=== PATIENT | female | born 1960 | race Caucasian/White ===

== ENCOUNTER → 2019-01-31 10:23 | Outpatient (CLI) | payer BC, SELFPAY ==
[2019-01-31 13:01] LABS: AST(SGOT) 17 U/L (15-37); Alanine Aminotransfer ALT/SGPT 29 U/L (13-56); Albumin, Serum 3.9 g/dL (3.2-5.0); Alkaline Phosphatase 49 U/L (45-117); Anion Gap 6 (5-15); BUN 15 mg/dL (7-18); BUN/Creat Ratio 19.2 RATIO (10-20); Calcium,Total 9.5 mg/dL (8.5-10.1); Chloride 104 mmol/L (98-107); Cholesterol 243 mg/dL (200); Creatinine, Serum 0.78 mg/dL (0.55-1.02); EST Glomerular Filtration Rate 80 mL/min (>60); Est Glom Filt Rate - Afr Amer 97 mL/min (>60); Globulin 4.1 g/dL (2.2-4.2); Glucose 109 mg/dL (74-106); High Density Lipoprotein 69 mg/dL; Potassium 3.7 mmol/L (3.5-5.1); Sodium Level 138 mmol/L (136-145); T4 Free Direct 1.07 ng/dL (0.76-1.46); Thyroid Stim Hormone (TSH) 2.64 uIU/mL (0.358-3.74); Triglycerides 114 mg/dL; Very Low Density Lipoprotein 23 mg/dL (5-40)
== END ==
PROVIDERS: Family Provider Family Medicine; PCP Family Medicine; Referring Provider Family Medicine; Visit Provider Family Medicine
DX: I10 Essential (primary) hypertension (principal); E03.9 Hypothyroidism, unspecified
CPT/HCPCS: 36415; 80053; 80061; 84439; 84443

== ENCOUNTER → 2019-08-11 08:54 | Outpatient (CLI) | payer BC, SELFPAY ==
--- NOTE | 2019-08-11 09:39 | BI_ITS ---
MAMMOGRAPHY - BILATERAL SCREENING REASON FOR EXAM: Female, 59 years old. Routine annual screening examination. PERTINENT HISTORY: Mother with breast cancer. Aunt with breast cancer. TECHNIQUE: Digital bilateral breast milly (3D mammographic acquisition) in the CC and MLO projections. 2-D mediolateral oblique (MLO) and craniocaudad (CC) views of both breasts were obtained. CAD: Full Field Digital Mammography with Computer Added Detection was performed. COMPARISON: Comparison is made with prior examination dated January 13, 2015 and January 21, 2014. FINDINGS: Breast Composition: There are scattered areas of fibroglandular density. There are no dominant masses or suspicious calcifications. Stable benign-appearing bilateral axillary lymph nodes. No other significant abnormalities are identified. There has been no significant change since the prior study. BI/SCREEN MAMM (CAD) W/MILLY BILAT IMPRESSION: Stable bilateral screening mammogram. Yearly follow-up mammogram recommended. (A) ASSESSMENT CATEGORY: BIRADS Category 2: Benign. A letter regarding these results will be sent to the patient by the facility within 30 days. Approximately 10% of breast cancers are not detected by mammography. A normal mammogram should not delay biopsy of a clinically suspicious abnormality. [id number] Electronically Signed: Jay Paige, at 8:26 EST , Service support ,
[2019-08-11 09:49] LABS: Anion Gap 3 (5-15); BUN 16 mg/dL (7-18); BUN/Creat Ratio 19.5 RATIO (10-20); Calcium,Total 9.5 mg/dL (8.5-10.1); Chloride 101 mmol/L (98-107); Cholesterol 259 mg/dL (200); Creatinine, Serum 0.82 mg/dL (0.55-1.02); EST Glomerular Filtration Rate 76 mL/min (>60); Est Glom Filt Rate - Afr Amer 92 mL/min (>60); Glucose 110 mg/dL (74-106); High Density Lipoprotein 70 mg/dL; Sodium Level 136 mmol/L (136-145); Thyroid Stim Hormone (TSH) 1.35 uIU/mL (0.358-3.74); Triglycerides 105 mg/dL; Very Low Density Lipoprotein 21 mg/dL (5-40)
== END ==
PROVIDERS: PCP Family Medicine; Referring Provider Obstetrics & Gynecology Gynecology; Visit Provider Obstetrics & Gynecology Gynecology
DX: Z12.31 Encounter for screening mammogram for malignant neoplasm of breast (principal); I10 Essential (primary) hypertension; E78.5 Hyperlipidemia, unspecified
CPT/HCPCS: 36415; 77063; 77067; 80048; 80061; 84443

== ENCOUNTER → 2019-08-14 07:45 | Outpatient (CLI) | payer BC, SELFPAY ==
--- NOTE | 2019-08-14 07:52 | US_ITS ---
STUDY: SUPERFICIAL ULTRASOUND - RIGHT SHOULDER. REASON FOR EXAM: Female, 59 years old. RT SHOULDER PALPABLE MASS TECHNIQUE: A superficial ultrasound was performed with real-time and static fernandez-scale imaging. COMPARISON: None. FINDINGS: In the region of clinical concern there is a 3.1 cm area of muscular prominence. A focal round structure of increased echogenicity demonstrated measuring 0.5 x 0.7 cm which may represent a small area of intramuscular hematoma. US/Ext Non Vasc Limited/Soft Tiss IMPRESSION: Muscular prominence in the region of clinical concern with possible small intramuscular hematoma if patient has history of trauma. If indicated, this can be further evaluated with MRI in nonacute setting. Electronically Signed: Penny Medina MD at 0:31 EST , Service support ,
== END ==
PROVIDERS: PCP Family Medicine; Referring Provider Family Medicine; Visit Provider Family Medicine
DX: R22.31 Localized swelling, mass and lump, right upper limb (principal)
CPT/HCPCS: 76882

== ENCOUNTER → 2019-08-21 15:15 | Outpatient (CLI) | payer BC, SELFPAY ==
--- NOTE | 2019-08-21 16:00 | MRI_ITS ---
STUDY: MRI RIGHT SHOULDER REASON FOR EXAM: Female, 59 years old. RIGHT shoulder mass anterior/lateral proximal humerus x 2 years, NKI, no problems with ROM TECHNIQUE: Standardized fat and water weighted pulse sequences were obtained in all 3 orthogonal planes. COMPARISON: Ultrasound dated 08/14/2019. FINDINGS: Homogeneous nonenhancing well encapsulated lesion following fat signal on all sequences within the anterior deltoid muscle (axial image 11 series 8 and sagittal image 7 series 11). Lesion measures approximately 8.4 cm x 2.7 cm x 2.5 cm. Lesion demonstrates small thin nonenhancing septation inferiorly (axial image 18 series 7). Mild supraspinatus tendinosis. Mild infraspinatus tendinous. Normal subscapularis tendon. Normal teres minor tendon. Normal supraspinatus muscle. Normal infraspinatus muscle. Normal subscapularis muscle. Normal teres minor muscle. Normal glenohumeral articulation. Normal humeral head and visualized proximal humerus. Normal biceps labral complex. Normal intracapsular long biceps tendon. Normal labrum. Normal capsulo- ligamentous complex. Normal rotator interval. Mild acromial clavicular joint arthrosis. Mild subacromial subdeltoid bursitis. Preserved acromiohumeral interval. Intact coracohumeral and coracoacromial ligaments. Normal quadrilateral space. Normal axillary space. Normal trapezius muscle. MRI/Upper Ext Joint Only W/WO Cont IMPRESSION: Nonenhancing intramuscular anterior deltoid lipoma Mild rotator cuff tendinosis without tear Mild AC joint arthrosis with mild subacromial subdeltoid bursitis Electronically Signed: Nakul Acuña DO at 8:32 EST Tel , Service support ,
== END ==
PROVIDERS: PCP Family Medicine; Referring Provider Family Medicine; Visit Provider Family Medicine
DX: R22.30 Localized swelling, mass and lump, unspecified upper limb (principal)
CPT/HCPCS: 73223; A9575

== ENCOUNTER 2020-02-06 09:44 | Emergency (ER) | payer BC, SELFPAY ==
[2020-02-06 09:45] VITALS: BP 152/102; PULSE 93; RESP 18; TEMP 36.6; O2SAT 98; BMI 28.1
--- NOTE | 2020-02-06 10:01 | ED.VISSUMM ---
- ER Visit Summary Date of Service: 02/06/20 Chief Complaint: Sided nosebleed History of Present Illness: The patient is a 59 F medical history of hypertension and hypothyroidism. Patient had a COVID nasal swab test done about a month ago. Typically she does not have nosebleeds. Since that time is had multiple different nosebleeds only from the right. She is on no blood thinners currently she previously was on aspirin only which they have stopped due to the nosebleeds. This morning she started having a nosebleed again. Only on the right side and her primary care physician's office instructed her to come to the emergency department. She denies any hematuria, hemoptysis, melena or bruising. She is never had any problems with bleeding disorders, anemia or platelet disorder. Blood thinners. Physical Examination: Well-appearing middle-aged female vital signs are stable afebrile initial blood pressure 152/102. present at bedside. H EENT exam currently there is no bleeding. There is no obvious source. The anterior nasal septum at [facility] plexus is unremarkable. There is no ulceration or trauma. There is no blood, clot or active bleeding. The left nares is normal. The right nasal turbinate is mildly swollen. Posterior pharynx no active bleeding. No large clots. Neck nontender. No lymphadenopathy. Lungs are clear. Heart regular rhythm no murmur. Abdomen soft. Moving all 4 extremities. No signs of any excessive bruising. Test Results: None Emergency Department Course and Treatment: Afrin soaked cotton balls be placed in both sides of her nose. Anterior nasal pack will be placed in the right. Treatment Plan: Amoxicillin 3 times daily for 3 days. Packing pulled in 3 days. Follow-up with ENT Dr. Sarbjit Rodgers as needed. Return if worse. Disposition: Discharge Impression: Acute right-sided nosebleed Anterior nasal pack by ER This note was generated with [employer] dictation software. It may contain incorrect words, spelling, and punctuation that were not noted in review of the chart prior to signing ED Disposition - Plan for ED Patient: Referrals: Sridhar Portillo MD [Primary Care Provider] -
--- NOTE | 2020-02-06 10:05 | DCINST.ED_ITS ---
ED Disposition - Plan for ED Patient: Disposition: Home or Assisted Living Instructions: Nosebleed Prescriptions: Amoxicillin 250 mg PO TID #9 cap Prescription Printed Referrals: Sridhar Portillo MD [Primary Care Provider] - As Needed Sridhar Alcazar MD [STAFF PHYSICIAN] - 1 Week if not improving Additional Instructions: Amoxicillin 3 times a day till packing removed. Follow-up with ENT if you continue to have nosebleeds. If recurrent bleeding at home with direct pressure and either Afrin or Esa- Synephrine nasal spray to help stop the bleeding. If unable return to the emergency department. Packing pulled out in 3 days.
[2020-02-06] MEDS: Oxymetazoline 0.05% 1 SPRAY SPRAY.BTL NASAL (11:09)
== END 2020-02-06 10:55 | disposition home or self-care (01) ==
LOC: ED 10:11
PROVIDERS: Emergency Provider Emergency Medicine; PCP Family Medicine
DX: R04.0 Epistaxis (principal); I10 Essential (primary) hypertension; E03.9 Hypothyroidism, unspecified
CPT/HCPCS: 30901; 99282; A4216

== ENCOUNTER → 2020-02-15 07:26 | Outpatient (CLI) | payer BC, SELFPAY ==
[2020-02-06 09:45] VITALS: BMI 28.1
[2020-02-15 08:20] LABS: Anion Gap 4 (5-15); BUN 18 mg/dL (7-18); BUN/Creat Ratio 21.7 RATIO (10-20); Calcium,Total 9.2 mg/dL (8.5-10.1); Chloride 100 mmol/L (98-107); Cholesterol 266 mg/dL (200); Creatinine, Serum 0.83 mg/dL (0.55-1.02); EST Glomerular Filtration Rate 75 mL/min (>60); Est Glom Filt Rate - Afr Amer 91 mL/min (>60); Glucose 113 mg/dL (74-106); High Density Lipoprotein 68 mg/dL; Potassium 3.8 mmol/L (3.5-5.1); Sodium Level 136 mmol/L (136-145); Thyroid Stim Hormone (TSH) 3.21 uIU/mL (0.358-3.74); Triglycerides 109 mg/dL; Very Low Density Lipoprotein 22 mg/dL (5-40)
== END ==
PROVIDERS: PCP Family Medicine; Referring Provider Family Medicine; Visit Provider Family Medicine
DX: E03.9 Hypothyroidism, unspecified (principal); I10 Essential (primary) hypertension
CPT/HCPCS: 36415; 80048; 80061; 84443

== ENCOUNTER → 2020-05-23 08:08 | Outpatient (CLI) | payer BC, SELFPAY ==
[2020-05-23 10:34] LABS: ALB/GLOB Ratio 1.1 RATIO (0.9-2.4); AST(SGOT) 24 U/L (15-37); Alanine Aminotransfer ALT/SGPT 36 U/L (13-56); Albumin, Serum 4.1 g/dL (3.2-5.0); Alkaline Phosphatase 48 U/L (45-117); Anion Gap 4 (5-15); BUN 14 mg/dL (7-18); BUN/Creat Ratio 18.2 RATIO (10-20); Calcium,Total 9.8 mg/dL (8.5-10.1); Chloride 101 mmol/L (98-107); Cholesterol 182 mg/dL (200); Creatinine, Serum 0.77 mg/dL (0.55-1.02); EST Glomerular Filtration Rate 81 mL/min (>60); Est Glom Filt Rate - Afr Amer 98 mL/min (>60); Globulin 3.9 g/dL (2.2-4.2); Glucose 109 mg/dL (74-106); High Density Lipoprotein 73 mg/dL; Potassium 3.6 mmol/L (3.5-5.1); Sodium Level 136 mmol/L (136-145); Triglycerides 88 mg/dL; Very Low Density Lipoprotein 18 mg/dL (5-40)
== END ==
PROVIDERS: PCP Family Medicine; Referring Provider Family Medicine; Visit Provider Family Medicine
DX: I10 Essential (primary) hypertension (principal); E78.2 Mixed hyperlipidemia
CPT/HCPCS: 36415; 80053; 80061

== ENCOUNTER 2020-06-05 05:43 | Day surgery (SDC) | payer BC, SELFPAY ==
--- NOTE | 2020-06-01 21:15 | PCM.HP.STD ---
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 For many years, patient has complained of pain, aching, and discomfort in her right lower extremity. This has become progressively worse. The patient denies swelling in her right lower extremity. She has no history of thrombophlebitis. A venous duplex examination has been performed, revealing incompetence of the right great saphenous vein, right small saphenous vein, right anterior accessory saphenous vein, and accessory saphenous veins at the S2 and S3 positions. The implications of this diagnosis have been discussed with the patient in detail. The options of management have been discussed with the patient in detail. Conservative treatment measures have been implemented for many months, including leg elevation, avoidance of idle standing and sitting, graduated compression stockings, weight control measures, active lifestyle, and [id number] analgesics. 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 (Chronic) Leg pain, right (Chronic) Hypertension (Chronic) Hypothyroidism (Chronic) Allergies perfume Allergy (Verified 05/27/20 08:11) PT UNABLE TO RESPOND-NEEDS F/U SEASONAL Allergy (Uncoded 02/06/20 09:47) PT UNABLE TO RESPOND-NEEDS F/U Home Medications: Ambulatory Orders Medication Instructions Recorded levothyroxine 88 mcg tablet 100 mcg PO DAILY 08/24/19 lisinopril 10 1 tab PO DAILY 08/24/19 mg-hydrochlorothiazide 12.5 mg tablet sertraline 50 mg tablet 100 mg PO DAILY 08/24/19 Atorvastatin Calcium [Lipitor] 20 mg PO QHS 11/24/20 Cholecalciferol (VIT D3) [Vitamin 1,000 unit PO DAILY 05/27/20 D] Multivitamin 1 ea PO DAILY 05/27/20 Surgical History: hysterectomy, tonsillectomy, - - The patient underwent endovenous laser ablation of the left great saphenous vein and the left small saphenous vein on April 03, 2020. Psychiatric History: No pertinent psych hx [employer] History: - - [id number] Lives: Spouse/ Significant Other Smoking Status: Never smoker Tobacco Use: Non-smoker Alcohol: Occasional Drugs: None Review of Systems Constitutional: Denies: Chills, Fever, Weight Change HEENT: Denies: Head Aches, Sinus Congestion, Sinus Drainage Cardiovascular: Denies: Chest Pain, Palpitations Respiratory: Denies: Cough, Shortness of breath at rest, Sputum production Gastrointestinal: Denies: Abdominal Pain, Nausea, Vomiting Genitourinary: Denies: Dysuria Musculoskeletal: Denies: Joint Pain, Joint Tenderness Skin: Denies: Rash, Wounds Neurological: Denies: Numbness, Tingling, Focal weakness Psychiatric: Denies: Anxiety, Depression, Homicidal Ideations, Suicidal Ideations Hematologic/ Lymphatic: Denies: Easy Bruising, Easy Bleeding VTE Information - Inpt Only VTE Present on Admission: No VTE Mechan Device Prophylaxis: SCD's - Left VTE Pharm Prophylaxis ordered?: Yes - Physical Exam Vitals/I&O's: Body Mass Index (BMI) 28.1 General: Alert, Oriented x3, Cooperative, No apparent distress, Well developed, Well nourished HEENT: Atraumatic, PERRLA, EOMI, Normocephalic Oral: Moist Mucosa Neck: Supple, No JVD, Negative Carotid Bruits Lungs: Clear to auscultation, Normal air movement, No rhonchi, No wheeze, No rales Cardiovascular: Regular rate, Regular Rhythm, Normal S1, Normal S2, No murmurs Abdomen: Bowel Sounds Present, Soft, Non Tender, Non-Distended Extremities: No clubbing, No cyanosis, No edema, Capillary Refill Less than 3 Seconds, No Calf Tenderness, - - Scattered large varicosities bilaterally in the calves. Skin: No rashes, No breakdown Musculoskeletal: No Tenderness to Palpation of Joints or Extremities, No Muscle Wasting Neurological: Cranial nerves II-XII grossly intact, Neuro grossly intact Psych/Mental Status: Normal Affect, Appropriate, Alert and oriented to time, place, person, mood and affect Assessment/Plan This is a 60-year-old female with a longstanding history of chronic venous insufficiency, varicose veins with inflammation, and leg pain involving her right lower extremity. Despite long-term conservative treatment measures, which have included leg elevation, avoidance of idle standing and sitting, graduated compression stockings, weight control measures, active lifestyle, [id number] analgesics, etc., the patient continues to have pain, aching, and discomfort in her right lower extremity that adversely affect daily activities, quality of life, and job functions. The options of management have been thoroughly explained. The indications and risks of endovenous laser ablation of the right great saphenous vein, the right small saphenous vein, right anterior accessory saphenous vein, and accessory saphenous veins at the S2 and S3 positions have been discussed with the patient in detail. The patient has indicated her desire to proceed. The appropriate preprocedure consent process has been undertaken. The patient has previously undergone a similar procedure in the contralateral limb, and has derived significant symptomatic benefit.The patient is to be admitted for elective endovenous laser ablation of the incompetent superficial veins in the right lower extremity.
--- NOTE | 2020-06-02 14:05 | EKG12_ITS ---
Test Reason : PRE OP Blood Pressure : / mmHG Vent. Rate : 060 BPM Atrial Rate : 060 BPM P-R Int : 196 ms QRS Dur : 070 ms QT Int : 436 ms P-R-T Axes : 039 013 059 degrees QTc Int : 436 ms Normal sinus rhythm Normal ECG Confirmed by SAMEER FREY, KEKE ([id number]), editor in chief LUIGI NOLAND ([id number]) on 06/03/2020 9:25:47 AM Referred By: Lemuel Sierra Confirmed By:KEKE ESTRELLA MD
[2020-06-02 16:08] LABS: Hematocrit 41.8 % (37-47); Hemoglobin 13.6 g/dL (12.0-15.0); Mean Corp Hgb Conc 32.5 g/dL (32-36); Mean Corpuscular Hgb 31.3 pg (27.0-32.0); Mean Corpuscular Volume 96.3 fL (81-99); Platelet Count 227 K/mm3 (150-450); RBC Distribution Width CV 12.7 % (11.6-14.6); RBC Distribution Width SD 45.6 fl (35.1-43.9); Red Blood Count 4.34 M/mm3 (4.2-5.4)
[2020-06-05 06:24] VITALS: BP 117/67; PULSE 59; RESP 18; TEMP 36.3; O2SAT 97; BMI 29.6
[2020-06-05] MEDS: Enoxaparin 30 MG/0.3 ML Syringe SC (06:28)
[2020-06-05] MEDS: Lactated Ringers 1,000 ML 100 ML IV (06:36)
[2020-06-05] MEDS: Cefazolin 2 GM in 0.9% Normal Saline 100 ML IV (07:30)
[2020-06-05 10:00] VITALS: BP 116/80; BP 117/67; PULSE 67; RESP 16; TEMP 36.2; O2SAT 98
[2020-06-05 10:08] VITALS: BP 117/67; BP 122/85; PULSE 65; RESP 18; O2SAT 99
--- NOTE | 2020-06-05 10:13 | DCINST_ITS ---
Discharge Diet: No Restrictions Discharge Activity: May Not Drive May shower in (days): 2 Weight Bearing Status: Weight bearing as tolerated Lifting Restrictions: 10 pounds Keep extremity elevated above heart level: Right Leg Call your doctor if you observe: Shortness of breath, Fainting spells, Chest pain, Prolonged hiccoughing, Increased palpitations (irregular heartbeat), Uncontrolled pain Suture Line Care: Avoid Pulling/Pushing Remove Dressing in (days):: 2 - Then rewrap leg with Torres daily from base of toes to upper thigh. Allergies/Adverse Reactions: Allergies perfume Allergy (Verified 06/05/20 06:21) PT UNABLE TO RESPOND-NEEDS F/U SEASONAL Allergy (Uncoded 06/05/20 06:21) PT UNABLE TO RESPOND-NEEDS F/U Medications to take at Discharge levothyroxine 88 mcg tablet 100 mcg PO DAILY 08/24/19 sertraline 50 mg tablet 100 mg PO DAILY 08/24/19 Atorvastatin Calcium [Lipitor] 20 mg PO QHS 05/27/20 Cholecalciferol (VIT D3) [Vitamin D] 1,000 unit PO DAILY 05/27/20 Multivitamin 1 ea PO DAILY 05/27/20 Lisinopril/Hydrochlorothiazide [Lisinopril-Hctz 20-12.5 mg Tab] 1 ea PO 06/05/20 Primary Care Physician: Sridhar Portillo MD [Primary Care Provider] - Test Results: Test results from this visit will be discussed in further detail at your follow- up appointment, if applicable. Please Follow Up With: Lemuel Sierra MD When: 10-14 days
[2020-06-05 10:20] VITALS: BP 117/67; BP 140/77; PULSE 64; RESP 18; TEMP 36.9; O2SAT 97
--- NOTE | 2020-06-05 10:30 | SUR.PHASEII ---
DR STEVENS'S HANDWRITTEN SCRIPT FOR PERCOCET GIVEN TO PATIENT.
[2020-06-05 11:25] VITALS: BP 111/62; BP 117/67; PULSE 89; RESP 16; TEMP 36.9; O2SAT 97
--- NOTE | 2020-06-05 11:32 | SUR.PHASEII ---
PATIENT AMBULATED WITHOUT DIFFICULTY. DRESSINGS INTACT. WHEN CHANGING CLOTHES, NOTED QUARTER-SIZE AREA OF STRIKE-THROUGH PROXIMALLY. NO ACTIVE BLEEDING NOTED WHEN LOOKING UNDER DRESSING. REINFORCED WITH ABD PAD. ENCOURAGED PATIENT TO REST HERE AT [facility] [place] TO MONITOR BUT PATIENT STATES COMFORTABLE TO GO HOME AND MONITOR.
--- NOTE | 2020-06-06 09:53 | PCM.OPRPT ---
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 Endovenous laser ablation of the right great saphenous vein. 2. Endovenous laser ablation of the right small saphenous vein. 3. Endovenous laser ablation of the right accessory saphenous vein (S2). 4. Endovenous laser ablation of the right accessory saphenous vein (S3) Description of Surgical Findings:: As above Type of Anesthesia:: General, Tumescent Anesthesiologist: Nakul Olsen Specimen's removed: None Drains: None Estimated Blood Loss (mL): Minimal Description of Procedure: This is a 60-year-old female who presented with a longstanding history of chronic venous insufficiency, varicose veins with inflammation, and leg pain involving her right lower extremity. Preoperative venous duplex examination revealed segmental valvular incompetence involving the right great saphenous vein, right small saphenous vein, the right anterior accessory saphenous vein, and 2 incompetent accessory saphenous veins located at the S2 and S3 positions. The implications of this diagnosis were discussed with the patient in detail. The options of management were fully explained. Conservative treatment measures were implemented, which included leg elevation, avoidance of idle standing and sitting, graduated compression stockings, weight control measures, active lifestyle, [id number] analgesics, etc. Despite these measures the patient remained symptomatic. The indications and risks of endovenous laser ablation of the incompetent superficial veins in the right lower extremity were discussed with the patient in detail. The appropriate preprocedure consent process was undertaken. The patient underwent ultrasound marking of the right great saphenous vein, the right small saphenous vein, the right anterior accessory saphenous vein, and the incompetent accessory saphenous veins at the S2 and S3 positions. She was then brought to the operating room suite, placed supine upon the operating room table, where general anesthesia was administered per the anesthesia staff. Additional ultrasound imaging was undertaken once the patient was anesthetized, and it was ascertained that the right anterior accessory saphenous vein appeared to be clinically insignificant, small in size, and of insufficient length for consideration of endothermal ablation. Therefore, the decision was made to forego attempts at ablation of this particular vein. The patient's right lower extremity and right groin were prepped and draped in the appropriate sterile manner. The patient was placed in reverse Trendelenburg position. Ultrasonography was used to image the right great saphenous vein in the distal calf. The micropuncture technique was used to access the right great saphenous vein percutaneously in the distal calf. In this manner, a 0.018 inch guidewire was advanced intraluminally into the right great saphenous vein, and was visualized by ultrasonography. A micropuncture sheath was advanced over the guidewire. The 0.018 inch guidewire was exchanged for a 0.035 inch guidewire, which was then advanced intraluminally to a level just distal to the right sapheno-femoral junction, as confirmed by ultrasound imaging. A long 4 Kitt[place] sheath was then advanced over the guidewire, and its tip was positioned approximately 2 cm distal to the right sapheno-femoral junction. Attention was then directed to the incompetent right small saphenous vein. To enhance exposure, the right lower extremity was placed in an externally rotated position with the right knee flexed. Using ultrasound imaging and the micropuncture technique, a micropuncture sheath was introduced intraluminally into the right small saphenous vein near the inferior border of the right gastrocnemius muscle, and was left in place, capped, for subsequent access purposes. Attention was then directed to each of the 2 incompetent accessory saphenous veins, located at the S2 and S3 positions off of the right great saphenous vein. In each case, using ultrasound imaging and the micropuncture technique, a micropuncture sheath was introduced intraluminally, and was left in place, capped, for subsequent access purposes. Attention was then redirected to the long 4 [place] sheath which had been previously placed intraluminally within the right great saphenous vein. Perivenous tumescent anesthesia was injected from the 4 Kitt[place] sheath exit site up to the tip near the right sapheno-femoral junction. This was performed segmentally using ultrasound imaging. The AngioDynamics laser fiber was then introduced into the 4 Kitt[place] sheath and coupled appropriately. Ultrasonography was used to confirm that the tip of the laser fiber was positioned within the right great saphenous vein approximately 2-1/2 cm distal to the right sapheno-femoral junction. The patient was placed in Trendelenburg position and the laser fiber was activated. The AngioDynamics laser was slowly withdrawn at a constant rate throughout the length of the right great saphenous vein, thereby ablating the right great saphenous vein segmentally. The energy applied was approximately 60 to 80 J/cm. Following the laser ablation, the laser fiber and sheath were removed, and manual pressure was briefly applied to the percutaneous access site to achieve hemostasis. Attention was then directed to the micropuncture sheath which had been previously placed intraluminally within the right small saphenous vein. A 0.035 inch guidewire was introduced intraluminally and its tip was positioned within the proximal portion of the right small saphenous vein. A long 4 [place] sheath was advanced over the guidewire and into position intraluminally within the right small saphenous vein. Perivenous tumescent anesthesia was injected from the 4 [place] sheath exit site up to the tip of the sheath in the proximal right small saphenous vein. The AngioDynamics laser fiber was then introduced into the 4 [place] sheath and coupled appropriately. Ultrasonography was used to confirm that the tip of the laser fiber was positioned within the proximal right small saphenous vein, several centimeters distal to its junction with the deep venous system, and remaining within the superficial portion of the right small saphenous vein. The patient was placed in Trendelenburg position, and the laser fiber was activated. The AngioDynamics laser was slowly withdrawn at a constant rate throughout the length of the right small saphenous vein, thereby ablating the right small saphenous vein segmentally. The energy applied was approximately 60 to 80 J/cm. Following the laser ablation, the laser fiber and sheath were removed, and manual pressure was briefly applied to the percutaneous access site to achieve hemostasis. Attention was then directed to each of the 2 incompetent accessory saphenous veins, located at the S2 and S3 positions. In each case, a 0.035 inch guidewire was introduced intraluminally, over which the long 4 Kittitian sheath was advanced. Perivenous tumescent anesthesia was injected from the 4 [place] sheath exit site up to the tip of the sheath. The AngioDynamics laser fiber was then introduced into the 4 [place] sheath, and coupled appropriately. Ultrasonography was used to confirm that the tip of the laser fiber was in the desired location, located within the proximal accessory saphenous vein abutting the previously ablated great saphenous vein. In each case, the patient was placed in Trendelenburg position and the laser fiber was activated. The AngioDynamics laser was slowly withdrawn at a constant rate throughout the length of each incompetent accessory saphenous vein, ablating the veins segmentally. The energy applied was approximately 60 to 80 J/cm. Following each laser ablation, the laser fiber and sheath were removed, and manual pressure was briefly applied to the percutaneous access site to achieve hemostasis. After assuring satisfactory hemostasis, the access sites were approximated using Cavilon and Steri-Strips. Dry sterile gauze dressings were applied over each of the access sites, and the leg was wrapped from the base of the toes to the upper thigh with Kerlix, followed by Torres wrap. The blood loss for the procedure was minimal. The sponge, needle, and instrument counts at the end of the procedure were correct. The patient tolerated the procedure well and was transported from the operating room to the post-anesthesia care unit in stable condition. The amount of tumescent anesthesia utilized, number of joules applied, and treatment times were recorded separately. - Complications None - Admit VTE Documentation VTE Present on Admission: No VTE Mechan Device Prophylaxis: SCD's - Left VTE Pharm Prophylaxis ordered?: Yes
== END 2020-06-05 11:35 | disposition home or self-care (01) ==
LOC: SDC 05:43 → AC 05:44
PROVIDERS: PCP Family Medicine; Referring Provider Surgery; Visit Provider Surgery
PROC: (CPT 36478; principal; 2020-06-05 07:15)
DX: I83.11 Varicose veins of right lower extremity with inflammation (principal); I10 Essential (primary) hypertension; E03.9 Hypothyroidism, unspecified; M79.604 Pain in right leg; Z79.899 Other long term (current) drug therapy; Z90.710 Acquired absence of both cervix and uterus
CPT/HCPCS: 01930; 36478; 36479; 36415; 85027; 87426; 93005; C9803; J7040; J7120; J2405

== ENCOUNTER → 2020-10-10 08:13 | Outpatient (CLI) | payer OTHER, SELFPAY ==
--- NOTE | 2020-10-10 08:32 | BI_ITS ---
MAMMOGRAPHY - BILATERAL SCREENING REASON FOR EXAM: Female, 60 years old. Routine annual screening examination. PERTINENT HISTORY: Mother with breast cancer. Aunt with breast cancer. TECHNIQUE: Digital bilateral breast milly (3D mammographic acquisition) in the CC and MLO projections. 2-D mediolateral oblique (MLO) and craniocaudad (CC) views of both breasts were obtained. CAD: Full Field Digital Mammography with Computer Added Detection was performed. COMPARISON: Comparison is made with prior study dated 08/11/2019 and 01/13/2015. FINDINGS: Breast Composition: There are scattered areas of fibroglandular density. There are no dominant masses or suspicious calcifications. Stable benign-appearing bilateral axillary lymph nodes. No other significant abnormalities are identified. There has been no significant change since the prior study. BI/SCRN MAMM (CAD)W/MILLY BILAT IMPRESSION: Stable bilateral screening mammogram. Yearly follow-up mammogram recommended. (A) ASSESSMENT CATEGORY: BIRADS Category 2: Benign. A letter regarding these results will be sent to the patient by the facility within 30 days. Approximately 10% of breast cancers are not detected by mammography. A normal mammogram should not delay biopsy of a clinically suspicious abnormality. [id number] Electronically Signed: Jay Paige MD at 10:51 EDT , Service support ,
== END ==
PROVIDERS: PCP Family Medicine; Referring Provider Obstetrics & Gynecology Gynecology; Visit Provider Obstetrics & Gynecology Gynecology
DX: Z12.31 Encounter for screening mammogram for malignant neoplasm of breast (principal); Z80.3 Family history of malignant neoplasm of breast
CPT/HCPCS: 77063; 77067

== ENCOUNTER → 2020-11-21 07:12 | Outpatient (CLI) | payer OTHER, SELFPAY ==
[2020-11-21 10:59] LABS: Anion Gap 6 (5-15); BUN 14 mg/dL (7-18); Calcium,Total 9.7 mg/dL (8.5-10.1); Chloride 98 mmol/L (98-107); Cholesterol 193 mg/dL (200); EST Glomerular Filtration Rate 90 mL/min (>60); Est Glom Filt Rate - Afr Amer 109 mL/min (>60); Glucose 127 mg/dL (74-106); High Density Lipoprotein 83 mg/dL; Potassium 3.3 mmol/L (3.5-5.1); Sodium Level 135 mmol/L (136-145); T4 Free Direct 1.12 ng/dL (0.76-1.46); Thyroid Stim Hormone (TSH) 2.93 uIU/mL (0.358-3.74); Triglycerides 74 mg/dL; Very Low Density Lipoprotein 15 mg/dL (5-40)
== END ==
PROVIDERS: PCP Family Medicine; Referring Provider Family Medicine; Visit Provider Family Medicine
DX: E03.9 Hypothyroidism, unspecified (principal); E78.2 Mixed hyperlipidemia; I10 Essential (primary) hypertension
CPT/HCPCS: 36415; 80048; 80061; 84439; 84443

== ENCOUNTER → 2021-02-05 16:10 | Outpatient (CLI) | payer OTHER, SELFPAY ==
--- NOTE | 2021-02-05 16:15 | MRI_ITS ---
STUDY: MRI BRAIN WITH AND WITHOUT CONTRAST REASON FOR EXAM: Female, 60 years old. LEFT EAR SUDDEN HEARING LOSS and amp; tinnitus TECHNIQUE: Standardized multiplanar fat and water weighted pulse sequences were obtained. 16ml Dotarem via IV was administered for the contrast portion of the examination. COMPARISON: None. FINDINGS: Normal size of the ventricles and extra-axial spaces for the patient''s age. Solitary tiny white matter lesion in the left parietal lobe without mass effect or restricted diffusion.. Normal bilateral basal ganglia. Normal thalami. There is no extra-axial fluid accumulation. Normal flow voids within the major intracranial circulation suggesting patency by spin echo criteria. Normal venous enhancement. There is no enhancing intra-axial or extra-axial abnormality. Normal sella turcica, pituitary gland, infundibular stalk, optic chiasm and hypothalamus. Normal tectal plate. There is a small pineal cyst is noted likely of no significance Normal midbrain, vito and medulla. Normal cerebellum. Normal basal cisterns. Normal bilateral temporal bones. Normal bilateral internal auditory canals. No demonstrated orbital abnormality, within the constraints of a routine brain study. Normal visualized paranasal sinuses. Normal calvarium and skull base. Normal visualized soft tissue structures. Normal visualized upper cervical spine. MRI/Brain W/WO Contrast IMPRESSION: Solitary tiny white matter lesion in the left parietal lobe most likely ischemic changes secondary to small vessel disease in patient of this age. No evidence for acute infarct. No evidence for acoustic or vestibular schwannoma Incidental finding of small pineal cyst likely of no significance Electronically Signed: Gene Devries MD at 19:04 EDT , Service support ,
[2021-02-06 10:15] LABS: CREATININE FINGERSTICK 0.7 mg/dL (0.55-1.02); EGFR FINGERSTICK > 60.0000 mL/min (>60)
== END ==
PROVIDERS: PCP Family Medicine; Referring Provider Otolaryngology; Visit Provider Otolaryngology
DX: H91.22 Sudden idiopathic hearing loss, left ear (principal)
CPT/HCPCS: 70553; A9575

== ENCOUNTER → 2021-03-10 18:47 | Outpatient (CLI) | payer OTHER, SELFPAY ==
[2021-03-12 20:08] LABS: Covid Inpatient test code BILL Performed (.)
== END ==
PROVIDERS: Visit Provider Family Medicine
DX: Z20.822 Contact with and (suspected) exposure to COVID-19 (principal)
CPT/HCPCS: 87635; U0005; U0003

== ENCOUNTER → 2021-04-14 17:57 | Outpatient (CLI) | payer OTHER, SELFPAY | PROVIDERS: PCP Family Medicine; Referring Provider Family Medicine; Visit Provider Family Medicine | DX: Z20.822 Contact with and (suspected) exposure to COVID-19 (principal) | CPT/HCPCS: 87635; U0005; U0003 ==

== ENCOUNTER → 2021-05-19 08:23 | Outpatient (CLI) | payer OTHER, SELFPAY ==
[2021-05-19 10:18] LABS: Vitamin D,25 Hydroxy 37.4 ng/mL
[2021-05-19 10:31] LABS: ALB/GLOB Ratio 0.9 RATIO (0.9-2.4); AST(SGOT) 19 U/L (15-37); Alanine Aminotransfer ALT/SGPT 32 U/L (13-56); Albumin, Serum 3.6 g/dL (3.2-5.0); Alkaline Phosphatase 49 U/L (45-117); Anion Gap 4 (5-15); BUN 11 mg/dL (7-18); BUN/Creat Ratio 17.6 RATIO (10-20); Calcium,Total 9.5 mg/dL (8.5-10.1); Chloride 102 mmol/L (98-107); Cholesterol 196 mg/dL (200); Creatinine, Serum 0.62 mg/dL (0.55-1.02); EST Glomerular Filtration Rate 103 mL/min (>60); Est Glom Filt Rate - Afr Amer 125 mL/min (>60); Glucose 114 mg/dL (74-106); High Density Lipoprotein 78 mg/dL; Potassium 3.6 mmol/L (3.5-5.1); Protein, Total 7.6 g/dL (6.4-8.2); Sodium Level 137 mmol/L (136-145); T4 Free Direct 1.05 ng/dL (0.76-1.46); Thyroid Stim Hormone (TSH) 1.99 uIU/mL (0.358-3.74); Triglycerides 78 mg/dL; Very Low Density Lipoprotein 16 mg/dL (5-40)
== END ==
PROVIDERS: PCP Family Medicine; Referring Provider Family Medicine; Visit Provider Family Medicine
DX: E78.2 Mixed hyperlipidemia (principal)
CPT/HCPCS: 36415; 80053; 80061; 82306; 84439; 84443

== ENCOUNTER 2021-10-16 07:51 | Outpatient (CLI) | payer OTHER, SELFPAY ==
--- NOTE | 2021-10-16 07:54 | BI_ITS ---
MAMMOGRAPHY - BILATERAL SCREENING REASON FOR EXAM: Female, 61 years old. Routine annual screening examination. PERTINENT HISTORY: Mother with breast cancer. Aunt with breast cancer. TECHNIQUE: Digital bilateral breast milly (3D mammographic acquisition) in the CC and MLO projections. 2-D mediolateral oblique (MLO) and craniocaudad (CC) views of both breasts were obtained. CAD: Full Field Digital Mammography with Computer Added Detection was performed. COMPARISON: Comparison is made with prior study dated 10/10/2020 and 08/11/2019. FINDINGS: Breast Composition: There are scattered areas of fibroglandular density. There are no dominant masses or suspicious calcifications. No other significant abnormalities are identified. There has been no significant change since the prior study. BI/SCRN MAMM (CAD)W/MILLY BILAT IMPRESSION: Stable bilateral screening mammogram. Yearly follow-up mammogram recommended. (A) ASSESSMENT CATEGORY: BIRADS Category 1: Negative. A letter regarding these results will be sent to the patient by the facility within 30 days. Approximately 10% of breast cancers are not detected by mammography. A normal mammogram should not delay biopsy of a clinically suspicious abnormality. [id number] Electronically Signed: Jay Paige MD at 8:41 EDT ,
== END 2021-10-16 23:59 | disposition home or self-care (01) ==
LOC: OPBI 07:52
PROVIDERS: PCP Family Medicine; Referring Provider Obstetrics & Gynecology Gynecology; Visit Provider Obstetrics & Gynecology Gynecology
DX: Z12.31 Encounter for screening mammogram for malignant neoplasm of breast (principal); Z80.3 Family history of malignant neoplasm of breast
CPT/HCPCS: 77063; 77067

== ENCOUNTER → 2021-11-21 | Outpatient (CLI) | payer OTHER, SELFPAY ==
[2021-11-21 09:47] LABS: ALB/GLOB Ratio 1.1 RATIO (0.9-2.4); AST(SGOT) 22 U/L (15-37); Alanine Aminotransfer ALT/SGPT 27 U/L (13-56); Alkaline Phosphatase 43 U/L (45-117); Anion Gap 4 (5-15); BUN 15 mg/dL (7-18); BUN/Creat Ratio 22.4 RATIO (10-20); Calcium,Total 9.6 mg/dL (8.5-10.1); Chloride 102 mmol/L (98-107); Cholesterol 188 mg/dL (200); Creatinine, Serum 0.67 mg/dL (0.55-1.02); EST Glomerular Filtration Rate 95 mL/min (>60); Est Glom Filt Rate - Afr Amer 115 mL/min (>60); Globulin 3.8 g/dL (2.2-4.2); Glucose 115 mg/dL (74-106); High Density Lipoprotein 91 mg/dL; Potassium 3.7 mmol/L (3.5-5.1); Protein, Total 7.8 g/dL (6.4-8.2); Sodium Level 136 mmol/L (136-145); Thyroid Stim Hormone (TSH) 2.83 uIU/mL (0.358-3.74); Triglycerides 62 mg/dL; Very Low Density Lipoprotein 12 mg/dL (5-40)
== END | disposition home or self-care (01) ==
LOC: LAB 08:59
PROVIDERS: PCP Family Medicine; Referring Provider Family Medicine; Visit Provider Family Medicine
DX: E03.9 Hypothyroidism, unspecified (principal); E78.2 Mixed hyperlipidemia; I10 Essential (primary) hypertension
CPT/HCPCS: 36415; 80053; 80061; 84443

== ENCOUNTER → 2022-05-12 | Outpatient (CLI) | payer OTHER, SELFPAY ==
[2022-05-12 08:07] LABS: Anion Gap 7 (5-15); BUN 11 mg/dL (7-18); BUN/Creat Ratio 15.5 RATIO (10-20); Calcium,Total 9.6 mg/dL (8.5-10.1); Chloride 99 mmol/L (98-107); Cholesterol 186 mg/dL (200); Creatinine, Serum 0.71 mg/dL (0.55-1.02); EST Glomerular Filtration Rate 89 mL/min (>60); Est Glom Filt Rate - Afr Amer 108 mL/min (>60); Glucose 106 mg/dL (74-106); High Density Lipoprotein 93 mg/dL; Potassium 3.5 mmol/L (3.5-5.1); Sodium Level 137 mmol/L (136-145); Thyroid Stim Hormone (TSH) 4.95 uIU/mL (0.358-3.74); Triglycerides 68 mg/dL; Very Low Density Lipoprotein 14 mg/dL (5-40)
== END | disposition home or self-care (01) ==
LOC: LAB 06:44
PROVIDERS: PCP Family Medicine; Referring Provider Family Medicine; Visit Provider Family Medicine
DX: E03.9 Hypothyroidism, unspecified (principal)
CPT/HCPCS: 36415; 80048; 80061; 84443

== ENCOUNTER → 2022-11-23 | Outpatient (CLI) | payer OTHER, SELFPAY ==
--- NOTE | 2022-11-23 09:10 | BI_ITS ---
MAMMOGRAPHY - BILATERAL SCREENING REASON FOR EXAM: Female, 62 years old. Routine annual screening examination. PERTINENT HISTORY: Mother with breast cancer. Aunt with breast cancer. TECHNIQUE: Digital bilateral breast milly (3D mammographic acquisition) in the CC and MLO projections. 2-D mediolateral oblique (MLO) and craniocaudad (CC) views of both breasts were obtained. CAD: Full Field Digital Mammography with Computer Added Detection was performed. COMPARISON: Mammogram from 10/16/2021, 10/10/2020.. FINDINGS: Breast Composition: There are scattered areas of fibroglandular density. There are no dominant masses or suspicious calcifications. No other significant abnormalities are identified. There has been no significant change since the prior study. BI/SCRN MAMM (CAD)W/MILLY BILAT IMPRESSION: Stable bilateral screening mammogram. Yearly follow-up mammogram recommended. (A) ASSESSMENT CATEGORY: BIRADS Category 1: Negative. A letter regarding these results will be sent to the patient by the facility within 30 days. Approximately 10% of breast cancers are not detected by mammography. A normal mammogram should not delay biopsy of a clinically suspicious abnormality. Electronically Signed: Mayank Lechuga MD at 14:55 EDT ,
== END | disposition home or self-care (01) ==
LOC: OPBI 09:09
PROVIDERS: PCP Family Medicine; Referring Provider Obstetrics & Gynecology Gynecology; Visit Provider Obstetrics & Gynecology Gynecology
DX: Z12.31 Encounter for screening mammogram for malignant neoplasm of breast (principal)
CPT/HCPCS: 77063; 77067

== ENCOUNTER → 2022-12-04 | Outpatient (CLI) | payer OTHER, SELFPAY ==
[2022-12-04 11:48] LABS: ALB/GLOB Ratio 1.1 RATIO (0.9-2.4); AST(SGOT) 21 U/L (15-37); Alanine Aminotransfer ALT/SGPT 29 U/L (13-56); Alkaline Phosphatase 44 U/L (45-117); Anion Gap 5 (5-15); BUN 14 mg/dL (7-18); BUN/Creat Ratio 20.8 RATIO (10-20); Calcium,Total 9.9 mg/dL (8.5-10.1); Chloride 101 mmol/L (98-107); Cholesterol 178 mg/dL (200); Creatinine, Serum 0.67 mg/dL (0.55-1.02); EST Glomerular Filtration Rate 94 mL/min (>60); Est Glom Filt Rate - Afr Amer 114 mL/min (>60); Globulin 3.8 g/dL (2.2-4.2); Glucose 114 mg/dL (74-106); High Density Lipoprotein 90 mg/dL; Potassium 3.8 mmol/L (3.5-5.1); Protein, Total 7.8 g/dL (6.4-8.2); Sodium Level 138 mmol/L (136-145); T4 Free Direct 1.07 ng/dL (0.76-1.46); Thyroid Stim Hormone (TSH) 2.23 uIU/mL (0.358-3.74); Triglycerides 75 mg/dL; Very Low Density Lipoprotein 15 mg/dL (5-40)
== END | disposition home or self-care (01) ==
LOC: LAB 09:50
PROVIDERS: PCP Family Medicine; Referring Provider Family Medicine; Visit Provider Family Medicine
DX: E03.9 Hypothyroidism, unspecified (principal); R73.01 Impaired fasting glucose
CPT/HCPCS: 36415; 80053; 80061; 84439; 84443

== ENCOUNTER 2023-04-06 10:58 | Emergency (ER) | payer OTHER, SELFPAY ==
[2023-04-06 10:58] VITALS: BP 147/79; PULSE 77; RESP 15; TEMP 36.4; O2SAT 97; BMI 32.1
--- NOTE | 2023-04-06 11:34 | EKG12_ITS ---
Test Reason : DIZZINESS Blood Pressure : / mmHG Vent. Rate : 066 BPM Atrial Rate : 066 BPM P-R Int : 218 ms QRS Dur : 076 ms QT Int : 440 ms P-R-T Axes : 045 018 061 degrees QTc Int : 461 ms Sinus rhythm with 1st degree A-V block with occasional Premature ventricular complexes Otherwise normal ECG Confirmed by SAMEER FREY, KEKE ([id number]), editor school photograph FLAVIO RICHARDSON ([id number]) on 04/08/2023 2:43:58 PM Referred By: Confirmed By:KEKE ESTRELLA MD
[2023-04-06] MEDS: Meclizine HCl 25 MG Tablet PO (11:42)
[2023-04-06] MEDS: Ondansetron 4 MG/2 ML Vial IV (11:48)
[2023-04-06] MEDS: 0.9% Normal Saline (1000mL) 1,000 ML 150 ML IV (11:48)
[2023-04-06 11:53] LABS: Absolute Neutrophil Count 4.2 X10^3/uL (2.0-7.7); Basophil# 0.08 X10^3/uL; Basophil% 1.1 % (0-1); Eosinophil# 0.12 X10^3/uL; Eosinophils% 1.6 % (0-5); Hematocrit 42.3 % (37-47); Hemoglobin 14.4 g/dL (12.0-15.0); Mean Corpuscular Hgb 31.9 pg (27.0-32.0); Mean Corpuscular Volume 93.8 fL (81-99); Mean Platelet Vol. 9.9 fl (6.2-12.0); Monocyte# 0.68 X10^3/uL; Monocyte% 9.1 % (0-10); NRBC Flagged by Analyzer 0 % (0-5); Neutrophil # 4.19 X10^3/uL (2.7-7.7); Neutrophil % 55.9 % (47-70); Platelet Count 245 K/mm3 (150-450); RBC Distribution Width CV 12.9 % (11.6-14.6); RBC Distribution Width SD 44.3 fl (35.1-43.9); Red Blood Count 4.51 M/mm3 (4.2-5.4); White Blood Count 7.5 K/mm3 (4.4-11.0)
[2023-04-06 12:03] LABS: Anion Gap 8 (5-15); BUN 11 mg/dL (7-18); BUN/Creat Ratio 17.2 RATIO (10-20); Calcium,Total 9.4 mg/dL (8.5-10.1); Chloride 95 mmol/L (98-107); Creatinine, Serum 0.64 mg/dL (0.55-1.02); EST Glomerular Filtration Rate 100 mL/min (>60); Est Glom Filt Rate - Afr Amer 121 mL/min (>60); Estimated Creatinine Clearance 87.49 ml/min; Glucose 127 mg/dL (74-106); Potassium 3.2 mmol/L (3.5-5.1); Sodium Level 131 mmol/L (136-145)
--- NOTE | 2023-04-06 12:07 | EDS_ITS ---
HPI History of Present Illness Chief Complaint: Dizziness Informant: patient Onset/Context/Timing Onset: Today Narrative Narrative: Patient presents secondary to dizziness. 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 As she was walking back to her desk she felt dizzy and nauseated. She describes a room spinning sensation. Symptoms are better when she holds her head still and worse when she turns her head. 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 No recent head injuries. [facility] Medical History (Updated 04/06/23 @ 13:[address] Genna Mcknight MD) Chronic venous insufficiency Hypertension Hypothyroidism M?ni?re's disease Home Medications levothyroxine 88 mcg tablet 100 mcg PO DAILY 08/24/19 [History Last Taken 06/05/20 05:30] sertraline 50 mg tablet 100 mg PO DAILY 08/24/19 [History Last Taken Unknown] atorvastatin 20 mg tablet 20 mg PO QHS 05/27/20 [History Last Taken Unknown] cholecalciferol (vitamin D3) 25 mcg (1,000 unit) tablet 1,000 unit PO DAILY 05/27/20 [History Last Taken Unknown] multivitamin 1 ea PO DAILY 05/27/20 [History Last Taken Unknown] lisinopril 20 mg-hydrochlorothiazide 12.5 mg tablet 1 ea PO 1XD 06/05/20 [History Last Taken 04/05/23] meclizine 50 mg tablet (Antivert) 50 mg PO BID PRN dizziness #14 tabs 04/06/23 [Rx Last Taken Unknown] Allergy/AdvReac Type Severity Reaction Status Date / Time perfume Allergy PT UNABLE Verified 04/06/23 11:02 TO RESPOND-NEEDS F/U Seasonal Allergies: Uncoded Allergy PT UNABLE Verified 04/06/23 11:02 TO RESPOND-NEEDS F/U Social History Smoking Status: Never smoker ROS ROS ED Constitutional Constitutional ED: Denies chills or fever(s) Eyes Eyes: Denies change in vision or discharge from eye(s) ENT ENT ED: Reports ear pain left; Denies discharge from eye(s), rhinorrhea or sore throat Cardiovascular Cardiovascular: Denies chest pain or palpitations Respiratory/Chest Respiratory/Chest: Denies cough or dyspnea Gastrointestinal Gastrointestinal: Reports nausea; Denies abdominal pain or vomiting Genitourinary Genitourinary ED: Denies dysuria Musculoskeletal Musculoskeletal: Denies back pain or extremity pain Integumentary Denies Abrasions or rash Neurologic Neurologic: Denies headache(s) or weakness Psychiatric Psychiatric: Denies anxiety or depression Allergic/Immunologic Allergic/Immunologic ED: Denies lip swelling or urticaria EXAM Physical Exam Const Vital Signs: 04/06/23 10:58 04/06/23 11:01 Temperature 97.5 F L Temperature Source Oral Pulse Rate 77 Respiratory Rate 15 Respiratory Effort Normal Non-Labored Respiratory Pattern Normal Blood Pressure 147/79 H Blood Pressure Mean 101 Pulse Ox 97 Oxygen Delivery Method Room Air Positive well nourished and well developed General Appearance ED: well developed HEENT Reports moist mucous membranes Eyes PERRL and EOMs intact bilaterally Eyes Narrative: Mild horizontal nystagmus noted on exam. Neck no lymphadenopathy Chest Wall inspection of chest normal and palpation of chest normal Resp normal respiratory effort and clear to auscultation bilaterally Cardio regular rate and regular rhythm GI non-tender Palpation: soft Extremity normal to inspection Neuro oriented x3 and no sensory deficits noted Motor Exam: strength 5/5 throughout Psych mental status grossly normal Skin no rashes or lesions noted MDM MDM MDM Narrative Medical decision making narrative: Patient placed on property assessment monitor. EKG obtained to evaluate for cardiac arrhythmia/ischemia. Labwork obtained to evaluate for leukocytosis, anemia, and electrolyte derangement. Patient given Zofran for nausea along with p.o. Antivert for vertigo. Lab Data Attestation: I reviewed the patient's lab results. Labs: Laboratory Results - last 24 hr 04/06/23 10:40 WBC 7.5 RBC 4.51 Hgb 14.4 Hct 42.3 MCV 93.8 MCH 31.9 MCHC 34.0 RDW Std Deviation 44.3 H RDW Coeff of Anjel 12.9 Plt Count 245 MPV 9.9 Immature Gran % (Auto) 0.300 Neut % (Auto) 55.9 Lymph % (Auto) 32.0 [place] % (Auto) 9.1 Eos % (Auto) 1.6 Baso % (Auto) 1.1 H Absolute Neuts (auto) 4.2 Absolute Lymphs (auto) 2.40 Nucleated RBC % 0 Sodium 131 L Potassium 3.2 L Chloride 95 L Carbon Dioxide 28.0 Anion Gap 8 BUN 11 Creatinine 0.64 Estim Creat Clear Calc 87.49 Est GFR (MDRD) Af Amer 121 Est GFR (MDRD) Non-Af 100 BUN/Creatinine Ratio 17.2 Glucose 127 H Calcium 9.4 EKG Initial EKG: Attestation: I personally reviewed and interpreted this EKG as follows: Interpretation: Sinus Rhythm (Sinus at 66 with no acute ischemia. QTc is 461.) Treatment and Re-Evaluation :: She was normal white count 7.5 with a hemoglobin of 14.4. Chemistry studies si gnificant for sodium slightly low at 131 and a potassium of 3.2. She is given normal saline bolus as well as p.o. potassium replacement. Glucose is 127. On repeat evaluation patient does feel improved. She is able to get up and ambulate to the restroom without difficulty. I will write her prescription for Antivert to have at home as well as Stacie maneuvers that she can use. She is comfortable with the plan. Return instructions given. Discharge Plan Triage Chief Complaint: Dizziness ED Provider: Genna Mcknight Dx/Rx/DC Orders Clinical Impression: Vertigo Instructions: ED BPV Vertigo Prescriptions: New meclizine [Antivert] 50 mg tablet 50 mg PO BID PRN (Reason: dizziness) Qty: 14 0RF No Action levothyroxine 88 mcg tablet 100 mcg PO DAILY Patient Comments: TAKE 1 TABLET BY MOUTH EVERY DAY sertraline 50 mg tablet 100 mg PO DAILY Patient Comments: TAKE 1 AND 1/2 TABLETS BY MOUTH ONCE DAILY multivitamin 1 EACH tablet 1 ea PO DAILY atorvastatin 20 MG tablet 20 mg PO QHS cholecalciferol (vitamin D3) 1,000 UNIT tablet 1,000 unit PO DAILY lisinopril-hydrochlorothiazide 1 EACH tablet 1 ea PO 1XD Primary Care Provider: Sridhar Portillo Referrals: Sridhar Portillo MD [Primary Care Provider] - 1 Week Disposition Disposition: Home, Self Care
[2023-04-06] MEDS: Potassium Chloride Oral Tablet 20 MEQ 40 MEQ PO (12:30)
[2023-04-06] MEDS: 0.9% Normal Saline (1000mL) 1,000 ML 999 ML IV (12:31)
[2023-04-06 13:07] VITALS: BP 135/82; PULSE 70; RESP 16; O2SAT 97
[2023-04-06 13:17] VITALS: BP 127/69; PULSE 73; RESP 15; O2SAT 98
== END 2023-04-06 13:18 | disposition home or self-care (01) ==
PROVIDERS: Emergency Provider Emergency Medicine; PCP Family Medicine; Visit Provider Emergency Medicine
DX: R42 Dizziness and giddiness (principal); R11.0 Nausea; I10 Essential (primary) hypertension; E03.9 Hypothyroidism, unspecified; Z79.899 Other long term (current) drug therapy
CPT/HCPCS: 80048; 85025; 93005; 96361; 96374; 99285; J7030; A4216; J2405

== ENCOUNTER → 2023-05-17 | Outpatient (CLI) | payer OTHER, SELFPAY ==
--- NOTE | 2023-05-17 13:31 | MRI_ITS ---
STUDY: MRI BRAIN WITH AND WITHOUT CONTRAST (ATTENTION INTERNAL AUDITORY CANALS - I.A.C.''s) REASON FOR EXAM: Female, 63 years old. Left-sided ringing/hearing loss. Dizzy. TECHNIQUE: Standardized multiplanar fat and water weighted pulse sequences were obtained. 17 mL of IV Clariscan. was administered for the contrast portion of the examination. COMPARISON: MRI brain with and without contrast 02/05/2021. FINDINGS: Normal bilateral temporal bones. Normal bilateral internal auditory canals. There is no demonstrated intracanalicular or cisternal vestibular schwannoma (acoustic neuroma). There is no enhancement of the bilateral VIIth or VIIIth cranial nerves. Normal bilateral cochlea, vestibules and semicircular canals. Normal size of the ventricles and extra-axial spaces for the patient''s age. Solitary tiny T2 FLAIR hyperintensity in the left precentral gyrus subcortical white matter towards convexity (series 6, image 20). This is unchanged. Normal remainder of the supratentorial white matter. Normal cerebellar white matter. Normal bilateral basal ganglia. Normal thalami. Normal flow voids within the major intracranial circulation suggesting patency by spin echo criteria. Normal venous enhancement. There is no enhancing intra-axial or extra-axial abnormality. There is no extra-axial fluid accumulation. Normal sella turcica, pituitary gland, infundibular stalk, optic chiasm and hypothalamus. Normal tectal plate and pineal gland. Normal midbrain, vito and medulla. Normal cerebellum. Normal basal cisterns. No demonstrated orbital abnormality, within the constraints of a routine brain study. Normal visualized paranasal sinuses. Normal calvarium and skull base. Normal visualized soft tissue structures. Normal visualized upper cervical spine. MRI/Brain W/WO Contrast IMPRESSION: 1. Normal unenhanced and enhanced MRI of the bilateral internal auditory canals (I.A.C''s). 2. Tiny solitary nonenhancing T2 FLAIR hyperintensity focus in the subcortical white matter of the left precentral gyrus towards the convexity remains nonspecific and unchanged. This is of questionable clinical significance and may represent nonspecific gliosis. 3. No dysplastic arteries and veins around the sigmoid sinus and transverse sinus to suspect dural AV fistula. 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 COMMENT: If left sided tinnitus is objective pulsatile tinnitus rather than subjective pulsatile tinnitus and dural AV fistula remains a strong clinical consideration, conventional cerebral arteriogram with bilateral external carotid arteriogram will be more helpful for further evaluation as they are frequently not visible on MRI brain or CTA head. Electronically Signed: Gerardo Bess MD at 9:23 EST ,
== END | disposition home or self-care (01) ==
LOC: MRI 13:17
PROVIDERS: PCP Family Medicine; Referring Provider Otolaryngology; Visit Provider Otolaryngology
DX: R42 Dizziness and giddiness (principal)
CPT/HCPCS: 70553; A9575

== ENCOUNTER → 2023-05-31 | Outpatient (CLI) | payer OTHER, SELFPAY ==
[2023-05-31 07:37] LABS: Mucous, Urine 0 SEEN /hpf (<or=2+)
[2023-05-31 10:09] LABS: Color, Urine Yellow (Yellow); Glucose, Dipstick Normal (Normal); Ketone-Dipstick Negative (Negative); Leukocyte Esterase-Dipstick 100 /ul (Negative); Nitrite-Dipstick Positive (Negative); Occult Blood-Urine 50 /ul (Negative); Protein-Dipstick 15 mg/dl (Negative); Specific Gravity, Urine 1.015 (1.002-1.030); Urine Bilirubin Dipstick Negative (Negative); Urine Clarity Sl. Cloudy (Clear); Urine Urobilinogen Normal (Normal); Urine pH 6.5 (5.0 - 8.0)
[2023-05-31 10:13] LABS: Vitamin D,25 Hydroxy 46.2 ng/mL
[2023-05-31 10:20] LABS: Bacteria 3+ /hpf (None Seen); Red Blood Cells-Urine 0-5 SEEN /hpf (0-5); Squamous Epithelial Cells - UA 0-5 SEEN /hpf (5-10); White Blood Cells 10-25 SEEN /hpf (0-5)
[2023-05-31 10:35] LABS: Anion Gap 5 (5-15); BUN 13 mg/dL (7-18); BUN/Creat Ratio 20.1 RATIO (10-20); Calcium,Total 9.1 mg/dL (8.5-10.1); Chloride 103 mmol/L (98-107); Creatinine, Serum 0.65 mg/dL (0.55-1.02); EST Glomerular Filtration Rate 98 mL/min (>60); Est Glom Filt Rate - Afr Amer 119 mL/min (>60); Glucose 117 mg/dL (74-106); Potassium 3.5 mmol/L (3.5-5.1); Sodium Level 140 mmol/L (136-145); Thyroid Stim Hormone (TSH) 1.61 uIU/mL (0.358-3.74)
[2023-05-31 10:47] LABS: Hemoglobin A1c 5.8 % (3.8-5.6)
== END | disposition home or self-care (01) ==
LOC: MTLAB 07:34
PROVIDERS: PCP Family Medicine; Referring Provider Family Medicine; Visit Provider Family Medicine
DX: R82.81 Pyuria (principal); R73.01 Impaired fasting glucose; E03.9 Hypothyroidism, unspecified; E78.2 Mixed hyperlipidemia; I10 Essential (primary) hypertension
CPT/HCPCS: 36415; 80048; 81001; 82306; 83036; 84443; 87086; 87088; 87186

== ENCOUNTER → 2023-08-23 | Outpatient (CLI) | payer OTHER, SELFPAY ==
[2023-08-23 12:19] LABS: Anion Gap 6 (5-15); BUN 16 mg/dL (7-18); BUN/Creat Ratio 22.3 RATIO (10-20); Calcium,Total 9.2 mg/dL (8.5-10.1); Chloride 95 mmol/L (98-107); Creatinine, Serum 0.72 mg/dL (0.55-1.02); EST Glomerular Filtration Rate 87 mL/min (>60); Est Glom Filt Rate - Afr Amer 105 mL/min (>60); Glucose 113 mg/dL (74-106); Potassium 3.5 mmol/L (3.5-5.1); Sodium Level 131 mmol/L (136-145)
== END | disposition home or self-care (01) ==
PROVIDERS: PCP Family Medicine; Referring Provider Family Medicine; Visit Provider Family Medicine
DX: I10 Essential (primary) hypertension (principal)
CPT/HCPCS: 36415; 80048

== ENCOUNTER → 2023-09-09 | Outpatient (CLI) | payer OTHER, SELFPAY ==
--- OUTSIDE RECORDS SUMMARY | 2023-09-09 09:30 | XMS RPT_ITS | CCD ---
Author Name Unknown Address [address] [place] [address] Organization [facility] Care Team Providers Care Student Liaison Officer Name Role Phone GERALD RAZOPValencia-ER Unavailable Unava ilJUAN CARLOS Kaplan M.D.-ER Unavailable Unavai ELIDA Gill Unavailable Unavailable Results Test Name Value Interpretation Reference Range Facil ity Encounters Encounter Date Encounter Type Care Provider Facility Start: 12-23-2017 Ambulatory ELIDA NEW Facil ity:[facility] Start: 02-04-2017 Ambulatory JUAN CARLOS Lobato M.D.-ER HOFFAR N Facility:[facility] Start: 02-03-2017 End: 02-04-2017 Emergency department patient visit GERALD Beal C.N.P.-ER SECORY Facility:[facility] Payers Date Payer Category Payer Policy ID Unknown [id number] Unknown [id number] Summary Purpose Family History No Family History Records Found Advance Directives No Advanced Directives Records Found Additional Source Comments INFORMATION SOURCE (unrecogn ized section and content) FOR RECORDS PERTAINING TO PATIENTS WHO ARE OR HAVE BEEN ENROLLED IN A CHEMICAL DEPENDENCY/SUBSTANCEABUSE PROGRAM, SOME INFORMATION MAY BE OMITTED. This clinical summary was aggregated from multiple sources. Caution should be exercised in using it in the provision of clinical care. This summary normalizes information from multiple sources, and as a consequence, information in this document may materially change the coding, format and clinical context of patient data. In addition, data may be omitted in some cases. CLINICAL DECISIONS SHOULD BE BASED ON THE PRIMARY CLINICAL RECORDS. [employer] provides no warranty or guarantee of the accuracy or completeness of information in this document.
[2023-09-09 10:38] LABS: Anion Gap 5 (5-15); BUN 16 mg/dL (7-18); BUN/Creat Ratio 24.9 RATIO (10-20); Calcium,Total 9.7 mg/dL (8.5-10.1); Chloride 99 mmol/L (98-107); Creatinine, Serum 0.64 mg/dL (0.55-1.02); EST Glomerular Filtration Rate 99 mL/min (>60); Est Glom Filt Rate - Afr Amer 120 mL/min (>60); Glucose 114 mg/dL (74-106); Potassium 3.9 mmol/L (3.5-5.1); Sodium Level 135 mmol/L (136-145)
== END | disposition home or self-care (01) ==
LOC: MTLAB 08:57
PROVIDERS: PCP Family Medicine; Referring Provider Family Medicine; Visit Provider Family Medicine
DX: I10 Essential (primary) hypertension (principal)
CPT/HCPCS: 36415; 80048

== ENCOUNTER → 2023-12-19 | Outpatient (CLI) | payer OTHER, SELFPAY ==
--- NOTE | 2023-12-19 07:28 | BI_ITS ---
MAMMOGRAPHY - BILATERAL SCREENING REASON FOR EXAM: Female, 63 years old. Routine annual screening examination. PERTINENT HISTORY: Mother with breast cancer. Aunt with breast cancer. TECHNIQUE: Digital bilateral breast milly (3D mammographic acquisition) in the CC and MLO projections. 2-D mediolateral oblique (MLO) and craniocaudad (CC) views of both breasts were obtained. CAD: Full Field Digital Mammography with Computer Added Detection was performed. COMPARISON: Comparison is made with prior study November 23, 2022 and October 16, 2021. FINDINGS: Breast Composition: There are scattered areas of fibroglandular density. There are no dominant masses or suspicious calcifications. No other significant abnormalities are identified. There has been no significant change since the prior study. BI/SCRN MAMM (CAD)W/MILLY BILAT IMPRESSION: Stable bilateral screening mammogram. Yearly follow-up mammogram recommended. (A) ASSESSMENT CATEGORY: BIRADS Category 1: Negative. A letter regarding these results will be sent to the patient by the facility within 30 days. Approximately 10% of breast cancers are not detected by mammography. A normal mammogram should not delay biopsy of a clinically suspicious abnormality. [id number] Electronically Signed: Jay Paige MD at 8:55 EDT ,
== END | disposition home or self-care (01) ==
LOC: OPBI 07:26
PROVIDERS: PCP Family Medicine; Referring Provider Obstetrics & Gynecology Gynecology; Visit Provider Obstetrics & Gynecology Gynecology
DX: Z12.31 Encounter for screening mammogram for malignant neoplasm of breast (principal); Z80.3 Family history of malignant neoplasm of breast
CPT/HCPCS: 77063; 77067

== ENCOUNTER → 2023-12-22 | Outpatient (CLI) | payer OTHER, SELFPAY ==
[2023-12-22 11:39] LABS: AST(SGOT) 24 U/L (15-37); Alanine Aminotransfer ALT/SGPT 28 U/L (13-56); Albumin, Serum 3.9 g/dL (3.2-5.0); Alkaline Phosphatase 45 U/L (45-117); Anion Gap 10 (5-15); BUN 20 mg/dL (7-18); BUN/Creat Ratio 29.2 RATIO (10-20); Calcium,Total 9.9 mg/dL (8.5-10.1); Chloride 102 mmol/L (98-107); Cholesterol 193 mg/dL (200); Creatinine, Serum 0.68 mg/dL (0.55-1.02); EST Glomerular Filtration Rate 92 mL/min (>60); Est Glom Filt Rate - Afr Amer 111 mL/min (>60); Globulin 3.9 g/dL (2.2-4.2); Glucose 130 mg/dL (74-106); High Density Lipoprotein 80 mg/dL; Potassium 3.7 mmol/L (3.5-5.1); Protein, Total 7.8 g/dL (6.4-8.2); Sodium Level 138 mmol/L (136-145); Triglycerides 89 mg/dL; Very Low Density Lipoprotein 18 mg/dL (5-40)
== END | disposition home or self-care (01) ==
LOC: MTLAB 07:09
PROVIDERS: PCP Family Medicine; Referring Provider Family Medicine; Visit Provider Family Medicine
DX: E78.2 Mixed hyperlipidemia (principal); I10 Essential (primary) hypertension
CPT/HCPCS: 36415; 80053; 80061

== ENCOUNTER → 2024-07-07 | Outpatient (CLI) | payer OTHER, SELFPAY ==
[2024-07-07 09:11] LABS: Anion Gap 6 (5-15); BUN 19 mg/dL (7-18); BUN/Creat Ratio 24.4 RATIO (10-20); Calcium,Total 9.6 mg/dL (8.5-10.1); Chloride 99 mmol/L (98-107); Cholesterol 219 mg/dL (200); Creatinine, Serum 0.78 mg/dL (0.55-1.02); EST Glomerular Filtration Rate 79 mL/min (>60); Est Glom Filt Rate - Afr Amer 96 mL/min (>60); Glucose 131 mg/dL (74-106); High Density Lipoprotein 83 mg/dL; Potassium 3.7 mmol/L (3.5-5.1); Sodium Level 134 mmol/L (136-145); Triglycerides 126 mg/dL; Very Low Density Lipoprotein 25 mg/dL (5-40)
== END | disposition home or self-care (01) ==
LOC: LAB 08:21
PROVIDERS: PCP Family Medicine; Referring Provider Family Medicine; Visit Provider Family Medicine
DX: E03.9 Hypothyroidism, unspecified (principal); I10 Essential (primary) hypertension
CPT/HCPCS: 36415; 80048; 80061; 84443

== ENCOUNTER 2024-07-25 13:30 | Outpatient (RCR) | payer OTHER, SELFPAY ==
--- NOTE | 2024-07-13 07:57 | HP.PTEVAL_ITS ---
Patient's Visit Information Visit Information Visit Information: ENRIQUE JACQUES is a 64 year old F referred to Physical Therapy by Dr. Shelly Jefferson MD with a diagnosis of Neck pain with L UE radiculopathy. Date of Evaluation: 07/13/24 Physical Therapist: Dwayne Walker, PT, ATC Visit Plan Frequency: 1x/Week Duration: 1-4 weeks Plan: RRIS, postural edu, scap stab ex's, DTR, and HEP Subjective Subjective: Pt reports she woke up the day after thanksgiving with pain in her L trap region. Pt reports she went to her doctors and received a muscle relaxer and pain meds, but the pain has only worsened. Pt notes she has had a stiff neck as well. Pt notes she is having trouble with sleep at this time secondary to pain. Pt notes the pain radiated down to her L elbow region, and she felt a little numbness in her fingers. 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 Pt has had a stiff neck in the past, b ut never L UE sx's. Pt has not had any diagnostic tests at this time. Pt reports she has increased pain with driving and if she doesn't remain posturally correct. Pt reports her pain meds and maintaining good posture helps with her pain. No L UE sx's at this time, mostly just a stiff necck and L upper trap pain. 5/10 pain while sitting here at rest, 8/10 when she wakes up in the morning. Pain Neck pain with L UE radiculopathy: Pain Intensity (Out of 10): 5 Pain Intensity Range: 8 Objective Objective: Neuro: B UE sensation is WNL to light touch. B bicipital reflex= 2/3 MMT: L UE's are grossly 4/5 throughout while R UE is 5/5 throughout. ROM: Pt is minimally limited with B c/s rotation and sidebending. Pt is moderately limited with extension and retraction. All other motions are WNL Repeated movements: RFIS 10x3 decreased pain and L trap sx's. RRIS 10x3 decreased pain and decreased L UE radiculopathy. Balance/Special Test Scores Quick DASH Score: 29.5450 Goals Goal 1:: Decrease L UE radiculopathy x 50% to aid with IADL's Goal Time Frame: 2-4 Weeks Goal 2:: Increase C/S ROM to WNL to aid with driving Goal Time Frame: 2-4 Weeks Goal 3:: Decrease c/s pain x 50% to aid with sleep Goal Time Frame: 2-4 Weeks Goal 4:: I with HEP Goal Time Frame: 2-4 Weeks Rehabilitation Potential Physical Therapy Diagnosis: Pt has neck pain, limited ROM, and L UE radiculopathy secondary to L c/s disc derrangement Rehabilitation Potential: Good Anticipated Interventions Patient/Client Instruction: Educate patient on: Condition and Plan of Care For the Purpose of:: To improve self management Therapeutic Exercise to Include: Strength training, Body mechanics, Postural training, Active ROM, Fabiano Exercises and Scapular Strength/Stabilization For the Purpose of:: To decrease pain, To increase ROM and To improve muscle performance and motor function Manual Therapy Techniques to Include: Soft tissue mobilization For the Purpose of:: To decrease pain and To increase ROM Text: Thank you for the opportunity to evaluate your patient. For Medicare and Medicare HMO plans, please review the plan of care and approve it. It will need to be FAXED BACK to us at [phone] for Medicare purposes. For Medicare only, by signing this I certify the plan of care. Please let me know if there are questions or concerns regarding this plan of care. Physician Signature: Date:
--- NOTE | 2024-09-17 14:51 | HP.PT.NRP ---
Patient Information Patient Information: ENRIQUE JACQUES was seen in my office for initial evaluation on 07/13/24. The following Plan of Care was established for this patient: POC Established Initial Frequency: 1x/Week Initial Duration: 1-4 weeks Anticipated Interventions Patient/Client Instruction: Educate patient on: Condition and Plan of Care For the Purpose of:: To improve self management Therapeutic Exercise to Include: Strength training, Body mechanics, Postural training, Active ROM, Fabiano Exercises and Scapular Strength/Stabilization For the Purpose of:: To decrease pain, To increase ROM and To improve muscle performance and motor function Manual Therapy Techniques to Include: Soft tissue mobilization For the Purpose of:: To decrease pain and To increase ROM Last Seen Last Seen: This patient was last seen in our office . Pertinent comments regarding their Physical therapy will appear below: Pt has not returned to therapy in greater than 30 days and is discontinued at this time. At this point I will be discontinuing this patient from physical therapy. I would be happy to see this patient again in the future if found appropriate by the physician. Thank you! Dwayne Walker, PT, ATC Balance/Gait/Functional tests Balance/Special Test Scores Quick DASH Score: 29.5413
== END 2024-07-25 19:00 | disposition home or self-care (01) ==
LOC: PT 13:30
PROVIDERS: PCP Family Medicine; Referring Provider Family Medicine; Visit Provider Family Medicine
DX: S29.012D Strain of muscle and tendon of back wall of thorax, subsequent encounter (principal)
CPT/HCPCS: 97140; 97161

== ENCOUNTER → 2024-09-24 | Outpatient (CLI) | payer OTHER, SELFPAY ==
[2024-09-24 23:17] LABS: Cholesterol 196 mg/dL (<=200); High Density Lipoprotein 74 mg/dL; Low Density Lipoprotein Calc. 96 mg/dL; Triglycerides 132 mg/dL; Very Low Density Lipoprotein 26 mg/dL (5-40); cholesterol:hdl ratio screen 2.65
== END | disposition home or self-care (01) ==
LOC: MTLAB 08:17
PROVIDERS: PCP Family Medicine; Referring Provider Family Medicine; Visit Provider Family Medicine
DX: E03.9 Hypothyroidism, unspecified (principal); E78.2 Mixed hyperlipidemia
CPT/HCPCS: 36415; 80061; 84439; 84443

== ENCOUNTER → 2025-01-22 | Outpatient (CLI) | payer OTHER, SELFPAY ==
[2025-01-22 11:07] LABS: Vitamin D,25 Hydroxy 51.0 ng/mL (30-100)
[2025-01-22 11:09] LABS: AST(SGOT) 22 U/L (<=31); Alanine Aminotransfer ALT/SGPT 25 U/L (<=34); Albumin, Serum 4.5 g/dL (3.4-4.8); Anion Gap 10 (5-15); BUN 14 mg/dL (4-19); BUN/Creat Ratio 19.3 RATIO (10-20); Calcium,Total 9.8 mg/dL (7.6-11.0); Carbon Dioxide 27.8 mmol/L (21.0-32.0); Chloride 99 mmol/L (98-108); Globulin 2.8 g/dL (2.2-4.2); Glucose 122 mg/dL (70-99); Potassium 3.8 mmol/L (3.3-5.1)
[2025-01-22 11:21] LABS: Alkaline Phosphatase 47 U/L (35-104)
== END | disposition home or self-care (01) ==
LOC: MTLAB 08:30
PROVIDERS: PCP Family Medicine; Referring Provider Family Medicine; Visit Provider Family Medicine
DX: E03.9 Hypothyroidism, unspecified (principal); E55.9 Vitamin D deficiency, unspecified
CPT/HCPCS: 36415; 80053; 82306; 84443

== ENCOUNTER 2025-04-15 10:00 | Outpatient (RCR) | payer MEDICARE, SELFPAY ==
--- NOTE | 2025-03-18 10:55 | HP.PTEVAL_ITS ---
Patient's Visit Information Visit Information Visit Information: ENRIQUE JACQUES is a 65 year old F referred to Physical Therapy by Dr. Harris Hagan MD with a diagnosis of vertigo. Date of Evaluation: 03/18/25 Physical Therapist: DMITRY Lima Visit Plan Frequency: 2x /Week Duration: 6 Weeks Plan: 2X/ week for 3-6 weeks for 1. progressive VOR (smooth pursuit was given for HEP so make sure that is progressing and the give head and eyes move together) 2. Vestibular inputs.... Standing on foam with EO/EC 3. 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 The first year she had no vertigo and then she got it about a year later and had steroid tx. In January she started to have episodes again and the prednisone is not working. She keeps having episodes. She is weaning off meclizine now and the last time she had dizziness was a week ago. She had nausea and like it could come on.... she was taking meclizine 3X/ day and then she went down to 2 and today she is going down to 1 meclizine. She is not moving her head very much. No dizziness and no nausea Objective Objective: Gait: Walks with head straight and decreased arm swing with occ stepping out to catch balance FGA: 14 VOR: Smooth Pursuit horizontal and vertical X 30 seconds with increase dizziness at the end or if she moves too fast. Some corrective saccades present at times in both directions Head and Eye moves together: X 15-20 seconds vertical and horizontal and increase head pressure CATSIB 65 Balance/Special Test Scores Functional Gait Assessment Score: 14 % Disability: 53.3400 CATSIB Score (Max score 120 seconds): 95 Dizziness Score: 16 Goals Goal 1:: I HEP Goal Time Frame: 6-8 Weeks Goal 2:: Be able to complete X 30 seconds smooth pursuit and head and eyes move together (both vertical and horizontal) X 30 seconds in standing with no weird head feeling or dizzy feeling Goal Time Frame: 6-8 Weeks Goal 3:: Pt to walk with more head turning as opposed to straight ahead Goal Time Frame: 6-8 Weeks Goal 4:: Increase balance (CATSIB was 95 at eval) Goal Time Frame: 6-8 Weeks Goal 5:: Increase balance (FGA was 14 at eval) Rehabilitation Potential Rehabilitation Potential: Good Anticipated Interventions Patient/Client Instruction: Educate patient on: Condition and Plan of Care For the Purpose of:: To improve muscle performance and motor function, To improve ability to perform ADL's, To increase tolerance to activity/condition/position, To improve ability of physical actions for home/community/work/leisure, To improve gait and locomotor functions, To improve endurance, To improve balance and To improve safety with gait Therapeutic Exercise to Include: Strength training, Endurance training, Balance training, Postural training, Gait and locomotor training, Neuromotor development and Active ROM For the Purpose of:: To improve muscle performance and motor function, To improve ability to perform ADL's, To increase tolerance to activity/condition/position, To improve performance and independence with ADL's, To decrease level of supervision to perform tasks, To improve gait and locomotor functions, To improve health of tissue, To improve endurance, To improve balance and To improve safety with gait Functional Training to Include: Gait training For the Purpose of:: To improve gait and locomotor functions and To improve safety with gait Text: Thank you for the opportunity to evaluate your patient. For Medicare and Medicare HMO plans, please review the plan of care and approve it. It will need to be FAXED BACK to us at [phone] for Medicare purposes. For Medicare only, by signing this I certify the plan of care. Please let me know if there are questions or concerns regarding this plan of care. Physician Signature: Date:
--- NOTE | 2025-04-15 10:19 | HP.PTDCSUM ---
Discharge Summary D/C summary: It has been my pleasure to treat ENRIQUE JACQUES referred by Dr. Harris Hagan MD, with the diagnosis of vertigo for a total of 7 visit(s). Discharge Date: 04/15/25 Please see the following information for a summary of their discharge status. Subjective Subjective: Pt reports that she is not feeling dizzy or off balance today. She has been doing her exercises and she has been walking on the grass a little and turning her head. Overall Improvement % Improvement: 95 Objective Objective/Function: FGA: 28 CATSIB 120 Gait: normal gait pattern Goals Goal 1:: I HEP Goal Progress: Goal Met Goal 2:: Be able to complete X 30 seconds smooth pursuit and head and eyes move together (both vertical and horizontal) X 30 seconds in standing with no weird head feeling or dizzy feeling Goal Progress: Goal Met Goal 3:: Pt to walk with more head turning as opposed to straight ahead Goal Progress: Goal Met Goal 4:: Increase balance (CATSIB was 95 at eval) Goal Progress: Goal Met Goal 5:: Increase balance (FGA was 14 at eval) Goal Progress: Goal Met Plan Plan: DC PT to HEP D/C Information Discharge Comments: DC PT to HEP d/c sentence: If there are questions or concerns regarding this patient's physical therapy, please feel free to call me at [phone]. Thank you for the referral of this patient. Sincerely, Allyn Adams, MPT Balance/Gait/Functional tests Balance/Special Test Scores Functional Gait Assessment Score: 28 % Disability: 6.6700 CATSIB Score (Max score 120 seconds): 120 Dizziness Score: 2 Improvement % Improvement: 95
== END 2025-04-15 11:59 | disposition home or self-care (01) ==
LOC: PT 10:00
PROVIDERS: PCP Family Medicine; Referring Provider Family Medicine; Visit Provider Family Medicine
DX: R42 Dizziness and giddiness (principal)
CPT/HCPCS: 97110; 97162; 97530

== ENCOUNTER → 2025-05-09 | Outpatient (CLI) | payer MEDICARE, SELFPAY ==
--- NOTE | 2025-05-09 10:30 | BD_ITS ---
PROCEDURE: DEXA BONE DENSITY STUDY 05/09/2025 REASON FOR EXAM: F, age 65 y/o . Postmenopausal. TECHNIQUE: Procedure Code: BDDBD Modality: DX Procedure: DEXA BONE DENSITY STUDY COMPARISON: November 03, 2011. FINDINGS: BMD and T-SCORES Lumbar spine: 1.156 g/cm2, T-score 1.0 Levels: L1 through L4 Change from prior: Loss of 11.9%. Left femoral neck: 0.827 g/cm2, T-score -0.2 Femoral neck comparison data not recommended for monitoring change. Left total hip: 1.028 g/cm2, T-score 0.7 Change from prior: Loss of 5.4%. Right femoral neck: 0.791 g/cm2, T-score -0.5 Femoral neck comparison data not recommended for monitoring change. Delete Right total hip: 0.994 g/cm2, T-score 0.4 Change from prior: -7.1. The World Health Organization has defined the following categories based on bone density: Normal bone density: T-score equal to or greater than -1.0 Osteopenia: T-score between -1.0 and -2.5 Osteoporosis: T-score equal to or less than -2.5 FRAX (or Comparable) Fracture Risk Assessment: 10 Year Probability of Fracture: Major Osteoporotic Fracture: 7% Hip Fracture: 0.3% (Note: FRAX is not to be reported in setting of normal range bone density, osteoporosis on DEXA, known history of osteoporosis, prior osteoporotic hip or vertebral fracture, or for any patient undergoing pharmacological treatment for bone loss.) The National Osteoporosis Foundation (NOF) recommends pharmacological treatment for patients with a FRAX 10-year risk of 3% or higher for a hip fracture, or 20% or higher for a major osteoporotic fracture, to prevent osteoporosis and reduce fracture risk. The patient does not meet the pharmacological treatment recommendations for prevention of osteoporosis. BD/Dexa Bone Density Study IMPRESSION: NORMAL T-SCORES. Recommend follow-up as clinically warranted. Reading Location: [id number]
--- NOTE | 2025-05-09 10:30 | BI_ITS ---
EXAM: SCRN MAMM (CAD)W/MILLY BILAT DATE: 05/09/2025 CLINICAL HISTORY: F, Age 65 y/o , SCREENING Routine screening. Mother with breast cancer. Aunt with breast cancer. TECHNIQUE: Procedure Code: [id number] Modality: MG Procedure: SCRN MAMM (CAD)W/MILLY BILAT COMPARISON: Prior exam(s) dated December 19, 2023. FINDINGS: TISSUE DENSITY: There are scattered areas of fibroglandular density. Bilateral Breast Mammographic Findings: No significant masses, calcifications or other abnormalities are identified. No suspicious masses, areas of developing architectural distortion, or suspicious calcifications. There has been no significant interval change. BI/SCRN MAMM (CAD)W/MILLY BILAT IMPRESSION: Stable bilateral screening mammogram. OVERALL FINAL ASSESSMENT BI-RADS 1: NEGATIVE. RECOMMENDATION: Routine annual follow-up in 1 Year Additional Recommendation none A letter with findings and recommendations will be mailed to the patient. Reading Location: [facility]
== END | disposition home or self-care (01) ==
LOC: OPBD 10:20
PROVIDERS: PCP Family Medicine; Referring Provider Obstetrics & Gynecology Gynecology; Visit Provider Obstetrics & Gynecology Gynecology
DX: Z12.31 Encounter for screening mammogram for malignant neoplasm of breast (principal); Z78.0 Asymptomatic menopausal state; Z13.820 Encounter for screening for osteoporosis
CPT/HCPCS: 77063; 77067; 77080